=== PATIENT | female | born 1940 | race Caucasian/White ===

== ENCOUNTER → 2019-01-01 | Outpatient (CLI) | payer MEDICARE, SELFPAY ==
--- NOTE | 2019-01-01 13:34 | RAD_ITS ---
HISTORY: PPainRAD - Hip EXAM: AP pelvis and 2 views of the right hip. No comparison imaging. Surgical clips are present superimposed over the left iliac wing. Multilevel degenerative disc disease within the visualized portions of the lower lumbar spine. Facet arthropathy. Sacroiliitis. Ossific fusion across the superior aspect of the pubic symphysis. Bilateral hip arthritis with joint space narrowing. Many enthesophytes off the iliac crest and the greater trochanters. Bowel gas pattern in the pelvis is normal. RAD/HIP, UNI W/ Pelvis 2-3 Views IMPRESSION: Enthesopathy. No fracture or dislocation. at 0130 Reported and signed by: Venkata Tatum MD Electronically Signed: Venkata Tatum MD at 1:29 EDT Tel , Service support ,
[2019-01-01 16:02] LABS: AST(SGOT) 18 U/L (15-37); Alanine Aminotransfer ALT/SGPT 23 U/L (13-56); Albumin, Serum 3.3 g/dL (3.2-5.0); Alkaline Phosphatase 80 U/L (45-117); Anion Gap 10 (5-15); BUN 16 mg/dL (7-18); BUN/Creat Ratio 15.8 RATIO (10-20); Calcium,Total 8.4 mg/dL (8.5-10.1); Chloride 108 mmol/L (98-107); Creatinine, Serum 1.01 mg/dL (0.55-1.02); EST Glomerular Filtration Rate 56 mL/min (>60); Est Glom Filt Rate - Afr Amer 68 mL/min (>60); Globulin 3.2 g/dL (2.2-4.2); Glucose 111 mg/dL (74-106); Potassium 4.2 mmol/L (3.5-5.1); Protein, Total 6.5 g/dL (6.4-8.2); Sodium Level 146 mmol/L (136-145)
[2019-01-01 16:40] LABS: Absolute Lymphocyte Count 2.31 X10^3/ul (0.83-4.51); Absolute Neutrophil Count 3.9 X10^3/uL (2.0-7.7); Basophil# 0.01 X10^3/uL; Basophil% 0.1 % (0-1); Eosinophils% 1.4 % (0-5); Hematocrit 37.8 % (37-47); Hemoglobin 11.9 g/dl (12.0-15.0); Lymphocyte # 2.31 X10^3/ul (4.0); Mean Corp Hgb Conc 31.5 g/gl (32-36); Mean Corpuscular Hgb 28.8 pg (27.0-32.0); Mean Corpuscular Volume 91.5 fL (81-99); Mean Platelet Vol. 9.9 fl (6.2-12.0); Monocyte# 0.66 X10^3/uL; Monocyte% 9.4 % (0-10); Neutrophil # 3.89 X10^3/uL (2.7-7.7); Neutrophil % 55.7 % (47-70); Platelet Count 263 K/mm3 (150-450); RBC Distribution Width CV 15.3 % (11.6-14.6); Red Blood Count 4.13 M/mm3 (4.2-5.4)
[2019-01-01 17:27] LABS: POSITIVE COUNT NO; POSITIVE DIFFERENTIAL NO; POSITIVE MORPHOLOGY NO
== END | disposition home or self-care (01) ==
PROVIDERS: Family Provider Family Medicine; PCP Family Medicine; Referring Provider Internal Medicine Rheumatology; Visit Provider Internal Medicine Rheumatology
DX: M05.70 Rheumatoid arthritis with rheumatoid factor of unspecified site without organ or systems involvement (principal); Z79.899 Other long term (current) drug therapy; M17.0 Bilateral primary osteoarthritis of knee; E11.9 Type 2 diabetes mellitus without complications
CPT/HCPCS: 36415; 73502; 80053; 85025

== ENCOUNTER → 2020-01-25 12:08 | Outpatient (CLI) | payer BC, SELFPAY ==
--- NOTE | 2020-01-25 12:18 | RAD_ITS ---
STUDY: X-RAY - CERVICAL SPINE REASON FOR EXAM: Female, 79 years old. PAIN IN NECK AND LIMITED RANGE OF MOTION FOR YEARS GETTING WORSE. MOSTLY ON THE LEFT SIDE. NO KNOWN INJURY. TECHNIQUE: 7 view(s) of the cervical spine were obtained. COMPARISON: None FINDINGS: Normal anterior atlantoaxial articulation. Normal odontoid process. Normal cervical lordosis. There is multi-level endplate spondylosis. There is multi-level degenerative disc disease with multilevel disc space narrowing. There is multi-level osseous foraminal stenosis. The soft tissue structures are unremarkable. There is no demonstrated fracture of the cervical spine. RAD/Cerv Spine 4 or 5 Views IMPRESSION: Multilevel degenerative changes, no acute findings Electronically Signed: Jonathon Sarmiento MD at 12:46 EDT , Service support ,
== END ==
PROVIDERS: PCP Family Medicine; Referring Provider Anesthesiology Pain Medicine; Visit Provider Anesthesiology Pain Medicine
DX: M54.2 Cervicalgia (principal)
CPT/HCPCS: 72050

== ENCOUNTER → 2020-02-27 10:53 | Outpatient (CLI) | payer MEDICARE, SELFPAY ==
[2020-02-27 12:37] LABS: Absolute Lymphocyte Count 3.12 X10^3/uL (0.83-4.51); Basophil# 0.05 X10^3/uL; Basophil% 0.5 % (0-1); Eosinophil# 0.21 X10^3/uL; Eosinophils% 2.3 % (0-5); Hematocrit 42.9 % (37-47); Hemoglobin 13.4 g/dL (12.0-15.0); Lymphocyte # 3.12 X10^3/ul (4.0); Lymphocyte % 34.1 % (19-41); Mean Corp Hgb Conc 31.2 g/dL (32-36); Mean Corpuscular Hgb 28.4 pg (27.0-32.0); Mean Corpuscular Volume 90.9 fL (81-99); Mean Platelet Vol. 10.1 fl (6.2-12.0); Monocyte# 0.66 X10^3/uL; Monocyte% 7.2 % (0-10); NRBC Flagged by Analyzer 0 % (0-5); Neutrophil # 4.97 X10^3/uL (2.7-7.7); Neutrophil % 54.4 % (47-70); Platelet Count 239 K/mm3 (150-450); RBC Distribution Width CV 14.1 % (11.6-14.6); RBC Distribution Width SD 47.3 fl (35.1-43.9); Red Blood Count 4.72 M/mm3 (4.2-5.4); White Blood Count 9.2 K/mm3 (4.4-11.0)
[2020-02-27 12:52] LABS: AST(SGOT) 18 U/L (15-37); Alanine Aminotransfer ALT/SGPT 21 U/L (13-56); Albumin, Serum 3.4 g/dL (3.2-5.0); Alkaline Phosphatase 84 U/L (45-117); Anion Gap 4 (5-15); BUN 21 mg/dL (7-18); BUN/Creat Ratio 18.8 RATIO (10-20); Calcium,Total 8.5 mg/dL (8.5-10.1); Chloride 105 mmol/L (98-107); Creatinine, Serum 1.12 mg/dL (0.55-1.02); EST Glomerular Filtration Rate 50 mL/min (>60); Est Glom Filt Rate - Afr Amer 60 mL/min (>60); Globulin 3.3 g/dL (2.2-4.2); Glucose 177 mg/dL (74-106); Potassium 4.1 mmol/L (3.5-5.1); Protein, Total 6.7 g/dL (6.4-8.2); Sodium Level 139 mmol/L (136-145)
== END ==
PROVIDERS: PCP Family Medicine; Referring Provider Internal Medicine Rheumatology; Visit Provider Internal Medicine Rheumatology
DX: M05.70 Rheumatoid arthritis with rheumatoid factor of unspecified site without organ or systems involvement (principal); Z79.899 Other long term (current) drug therapy; M17.0 Bilateral primary osteoarthritis of knee; E11.9 Type 2 diabetes mellitus without complications; N39.46 Mixed incontinence; M47.897 Other spondylosis, lumbosacral region
CPT/HCPCS: 36415; 80053; 85025

== ENCOUNTER 2021-04-08 06:44 | Emergency (ER) | payer MEDICARE, SELFPAY ==
[2021-04-08 06:48] VITALS: TEMP 37
[2021-04-08 06:53] VITALS: BP 152/69; PULSE 68; RESP 16; TEMP 36.9; O2SAT 99; BMI 35.8
--- NOTE | 2021-04-08 07:13 | EDS_ITS ---
HPI History of Present Illness Chief Complaint: Complaint Detail of Chief Complaint: Not a complaint. Atraumatic left hip pain Informant: patient Onset/Context/Timing Onset: Yesterday Context: Gradual Onset Timing: Continuous Current Severity: Mild Maximum Severity: Mild Narrative Narrative: Patient with chronic left hip pain on tramadol. Says mostly pain in the left groin. Denies any falls or trauma. No fever. Uses tramadol at home. No prior hip surgery. Denies dysuria. Worse with movement. Prior similar symptoms: Yes Recent Illness/Hospitalization: No PFSH PFSH Medical History High cholesterol Hypertension Home Medications adalimumab [Humira Pen] 40 mg SUBCUT UD 04/08/21 [History Last Taken Unknown] atorvastatin 10 mg DAILY 04/08/21 [History Last Taken Unknown] famotidine 20 mg PO DAILY 04/08/21 [History Last Taken Unknown] gabapentin 600 mg BID 04/08/21 [History Last Taken Unknown] losartan 25 mg DAILY 04/08/21 [History Last Taken Unknown] Allergy/AdvReac Type Severity Reaction Status Date / Time ciprofloxacin [From Cipro] AdvReac Other Verified 04/08/21 07:03 diphenhydramine AdvReac Other Verified 04/08/21 07:03 [From Benadryl] Social History Smoking Status: Never smoker ROS ROS ED ROS Narrative Denies recent illness denies recent admission Review of Systems ROS Unobtainable: Denies due to encephalopathy Constitutional Constitutional ED: Denies chills or fever(s) Eyes Eyes: Denies change in vision ENT ENT ED: Denies ear pain Cardiovascular Cardiovascular: Denies chest pain Respiratory/Chest Respiratory/Chest: Denies dyspnea Gastrointestinal Gastrointestinal: Denies abdominal pain, diarrhea, nausea or vomiting Genitourinary Genitourinary ED: Denies dysuria or hematuria Musculoskeletal Musculoskeletal: Denies myalgias Integumentary Denies rash Neurologic Neurologic: Denies headache(s) Psychiatric Psychiatric: Denies depression Endocrine Endocrinology: Denies polyuria Allergic/Immunologic Allergic/Immunologic ED: Denies urticaria EXAM Physical Exam Narrative Exam Narrative: 80-year-old female no acute distress. Vital signs stable af ebrile. H EENT exam unremarkable. Neck nontender no lymphadenopathy. Lungs clear to auscultation bilaterally. Heart regular rhythm no murmur. Abdomen soft nontender normal bowel sounds no peritoneal signs. No obvious hernia seen. Patient moving all 4 extremities. Neurovascular intact. No edema. No deformity. Specifically left hip she can move it is just pain with range of motion. There is no redness or swelling. No signs of septic joint. Bilateral knee replacements. Dorsi plantar flexion intact. No shortening or deformity of the hip Const Vital Signs: 04/08/21 06:48 04/08/21 06:53 Temperature 98.6 F 98.4 F Temperature Source Temporal Temporal Pulse Rate 68 Respiratory Rate 16 Blood Pressure 152/69 H Blood Pressure Mean 96 Pulse Ox 99 Oxygen Delivery Method Room Air Positive well nourished and well developed; Negative for cachectic, contractures or unkempt General Appearance ED: well developed and NAD; Negative for unkempt, cachectic, contractures or cyanotic Nutritional Appearance: Negative for cachectic HEENT Reports moist mucous membranes Negative for trauma or tenderness Eyes PERRL and EOMs intact bilaterally Neck no lymphadenopathy, supple and no JVD General: Negative for tenderness Chest Wall inspection of chest normal and palpation of chest normal Resp normal respiratory effort and clear to auscultation bilaterally Cardio regular rate, regular rhythm, S1 normal heart sound, S2 normal heart sound and no murmurs GI normal to inspection, nondistended, normoactive bowel sounds, non-tender and non-distended Inspection: Negative for abdominal distention Auscultation: normoactive bowel sounds Palpation: soft; Negative for tender, guarding or rebound tenderness present Back/Spine no CVA tenderness General Back: Negative for CVA tenderness Extremity normal to inspection Extremity Narrative: No pain with range of motion of left hip. General Extremety ED: Negative for edema or tenderness General Extremity: Negative for edema Neuro oriented x3 and CN's II-XII intact bilaterally Sensorium / Orientation: alert; Negative for lethargic or stuporous Motor Exam: strength 5/5 throughout Psych mental status grossly normal Appearance: Negative for unkempt Skin no rashes or lesions noted and no wounds MDM MDM MDM Narrative Medical decision making narrative: Older female acute on chronic left hip pain. Does not look septic. This does appear to be musculoskeletal. Abdomen is benign. There is no hernia. Patient be given p.o. tramadol and and ambulated. She lives alone. She does have family in the area. She would prefer not that strong for pain. She does use tramadol at home. Discharge Plan Triage Chief Complaint: Complaint ED Provider: Elvis Angela Dx/Rx/DC Orders Clinical Impression: Acute pain of left hip Prescriptions: No Action gabapentin 600 mg tablet 600 mg BID RF: 0 atorvastatin 10 mg tablet 10 mg DAILY RF: 0 losartan 25 mg tablet 25 mg DAILY RF: 0 famotidine 20 mg tablet 20 mg PO DAILY RF: 0 Humira Pen 40 mg/0.8 mL pen injector kit 40 mg SUBCUT UD RF: 0 Primary Care Provider: Federica Salinas Referrals: Federica Salinas MD [Primary Care Provider] - 3-5 Days if not improving Activity Restrictions/Additional Instructions: Ice to left hip. Tramadol for pain. Follow-up with your doctor. Return emergency department if worse or unable to walk. Disposition Disposition: Home, Self Care
[2021-04-08] MEDS: traMADol 50 MG Tablet 100 MG PO (07:17)
[2021-04-08 08:18] VITALS: BP 144/65; PULSE 87; RESP 17; O2SAT 96
--- NOTE | 2021-04-08 13:49 | ED.RN ---
Pt called and asked about what to do for pain. pt given tramadol here and advised to take tramadol at home. per pt she only has enough for a couple days and she will be taking them every 3 hours. pt was advised to take them as rx. pt unable to get into dr until the Apr. pt asked what to do until then and was told her instructions say if she is unable to walk or in having more pain to come back. pt stated ok if im not
== END 2021-04-08 08:27 | disposition home or self-care (01) ==
PROVIDERS: Emergency Provider Emergency Medicine; PCP Family Medicine
DX: M25.552 Pain in left hip (principal); E78.00 Pure hypercholesterolemia, unspecified; I10 Essential (primary) hypertension; Z79.899 Other long term (current) drug therapy
CPT/HCPCS: 99284

== ENCOUNTER 2021-10-12 12:50 | Outpatient (CLI) | payer MEDICARE, SELFPAY ==
--- NOTE | 2021-10-12 12:55 | CT_ITS ---
INDICATION: EAR PAIN EXAMINATION: CT NECK WITH CONTRAST - CT Soft Tissue Neck W/ Contrast Injection TECHNIQUE: Helically acquired images were obtained of the neck following IV contrast. A radiation dose optimization technique was used for this scan. IV Contrast dosage and agent: COMPARISON: None. FINDINGS: NASOPHARYNX: Unremarkable. SUPRAHYOID NECK: Unremarkable oropharynx, oral cavity, parapharyngeal space, and retropharyngeal space. INFRAHYOID NECK: Unremarkable larynx, hypopharynx, and supraglottis. THYROID: Multiple hypodense nodules, some of which are calcified. SALIVARY GLANDS: Unremarkable. LYMPH NODES: No cervical or supraclavicular lymphadenopathy. VASCULAR STRUCTURES: Arterial atherosclerotic disease. No flow limiting stenosis. VISUALIZED PORTIONS OF THE ORBITS, PARANASAL SINUSES, MASTOID AIR CELLS AND SKULL BASE: Unremarkable. BONES: Limited assessment of fine osseous detail due to contrast enhanced protocol. No displaced fracture or subluxation. Multilevel degenerative changes of the cervical spine. No destructive osseous lesions. THORACIC INLET: 5 mm nodule in the left lung apex. The remainder of the visualized lungs are clear. CT/Soft Tissue Neck WITH Contrast IMPRESSION: 1. No findings to account for given clinical history of ear pain. 2. Multiple hypodense thyroid nodules. This is likely a multinodular goiter however some demonstrate calcifications and further assessment with nonemergent ultrasound is recommended. 3. 5 mm nodule in the left lung apex. Follow-up per FLEISCHNER criteria recommended. Electronically Signed: Rey Haines, at 15:25 EDT ,
[2021-10-12 13:16] LABS: CREATININE FINGERSTICK 1.1 mg/dL (0.55-1.02)
== END 2021-10-12 23:59 | disposition home or self-care (01) ==
LOC: CT 12:54
PROVIDERS: PCP Family Medicine; Referring Provider Otolaryngology; Visit Provider Otolaryngology
DX: H92.02 Otalgia, left ear (principal); K11.9 Disease of salivary gland, unspecified
CPT/HCPCS: 70491; Q9967

== ENCOUNTER 2022-05-14 10:47 | Emergency (ER) | payer MEDICARE, SELFPAY ==
[2022-05-14 10:48] VITALS: BP 141/84; PULSE 68; RESP 18; TEMP 36.1; O2SAT 98; BMI 37.1
--- NOTE | 2022-05-14 11:03 | CT_ITS ---
STUDY: CT CERVICAL SPINE WITHOUT CONTRAST REASON FOR EXAM: Female, 81 years old. Pain following a fall. RADIATION DOSAGE (If Supplied By Facility): CTDIvol = ( 23.71 ) mGy, DLP = ( 507.82 ) mGycm TECHNIQUE: High resolution transaxial imaging was performed without contrast material. Sagittal and coronal images were reconstructed. Individualized dose optimization techniques were used for this CT. COMPARISON: None FINDINGS: Normal craniovertebral junction. There are degenerative changes of the anterior atlantoaxial articulation. Normal odontoid process. Normal cervical lordosis. Normal vertebral bodies and posterior osseous elements. C2-3: Facet joint osteoarthritis. Mild degree of uncovertebral arthrosis. No significant stenosis seen. C3-4: Mild degree of disc space narrowing. Hypertrophy of the facet joints more prominent on the left side. Uncovertebral arthrosis. Mild degree of left neural foraminal stenosis. C4-5: Mild degree of disc space narrowing. Facet joint osteoarthritis and hypertrophy worse on the left side. A moderate degree of left neural foraminal stenosis. C5-6: Moderate degree of disc space narrowing. Spondylosis. Facet joint osteoarthritis and hypertrophy worse on the right side. Mild degree of bilateral neural foraminal stenosis. C6-7: Moderate degree of disc space narrowing and spondylosis. Uncovertebral arthrosis. Facet joint osteoarthritis. Mild bilateral neural foraminal stenosis. C7-T1: Normal endplates. Normal disc height and morphology. Normal central canal and intervertebral neuroforamina. Calcified plaque of the carotid bifurcations. Heterogeneous enlargement of both lobes of thyroid gland with focal calcification in the posterior right lobe and low density nodules in both lobes. CT/Spine Cervical without Contras IMPRESSION: Multilevel degenerative changes, as described above. Electronically Signed: Delgado Sinha MD at 12:08 EDT ,
--- NOTE | 2022-05-14 11:03 | RAD_ITS ---
STUDY: X-RAY - RIGHT SHOULDER REASON FOR EXAM: Female, 81 years old. Injury/Pain TECHNIQUE: 3 view(s) of the shoulder. COMPARISON: Comparison is made with prior study of 12/13/2016. FINDINGS: There is mild degenerative arthrosis of the glenohumeral articulation. There is hypertrophic osteoarthrosis of the acromioclavicular joint with inferior osseous spur formation. Normal acromion. Decreased distance between the acromion and head of the humerus suggestive of rotator cuff pathology. Normal humeral head and visualized proximal humerus. There is periarticular soft tissue calcification consistent with a calcific tendinitis. Normal visualized pulmonary apex. RAD/Shoulder min 2 Views IMPRESSION: Degenerative changes. No fracture is seen. Minimal calcific tendinitis. Electronically Signed: Delgado Sinha MD at 12:17 EDT ,
--- NOTE | 2022-05-14 11:03 | CT_ITS ---
STUDY: CT BRAIN WITHOUT CONTRAST REASON FOR EXAM: Female, 81 years old. Head injury. No loss of consciousness. Ecchymosis overlying the right forearm. RADIATION DOSAGE (If Supplied By Facility): CTDIvol = ( 44.99 ) mGy, DLP = ( 779.24 ) mGycm TECHNIQUE: Transaxial CT imaging of the brain was performed without administration of intravenous contrast material. Individualized dose optimization techniques were used for this CT. COMPARISON: No relevant priors. FINDINGS: Mild degree of the scalp hematoma overlying the right frontal bone. There is hyperostosis frontalis internus. There is evidence of an 8.4 mm x 6.2 mm partially calcified extradural nodule arising from the anterior right cerebral falx. This is incompletely partially calcified meningioma. There is mild cerebral atrophy with widening of the extra-axial spaces and ventricular dilatation. There are areas of decreased attenuation within the white matter tracts of the supratentorial brain, consistent with microvascular disease changes. Normal basal ganglia and thalami. Normal brainstem. Normal cerebellum. There is no intracranial hemorrhage. There are no findings of an acute ischemic infarction. Atherosclerotic calcific plaques of the vertebral arteries and cavernous portions of the internal carotid arteries bilaterally. Normal visualized paranasal sinuses. CT/Brain/Head without Contrast IMPRESSION: Findings suggestive of a 8.4 mm x 6.2 mm partially calcified nodular density arising from the anterior aspect of the right cerebral falx. This is in keeping with a partially calcified meningioma. Cerebral atrophy. Electronically Signed: Delgado Sinha MD at 12:05 EDT ,
--- NOTE | 2022-05-14 11:04 | RAD_ITS ---
STUDY: X-RAY - RIGHT KNEE REASON FOR EXAM: Female, 81 years old. Injury/Pain TECHNIQUE: 4 view(s) of the knee. COMPARISON: None. FINDINGS: Normal visualized distal femur. Normal visualized proximal tibia and fibula. Normal proximal tibiofibular articulation. The patient is status post right total knee replacement. There is good alignment. Mild degree of soft tissue swelling. RAD/Knee 4 or More Views IMPRESSION: Status post total knee replacement. There is good alignment. Mild degree of soft tissue swelling. Electronically Signed: Delgado Sinha MD at 12:16 EDT ,
--- NOTE | 2022-05-14 11:04 | ED.VIS.FALL ---
HPI <YANN Holguin - Last Filed: 05/14/22 12:51> HPI - Fall History of Present Illness Chief Complaint: Fall Narrative Narrative: 81-year-old female had a mechanical fall this morning at home. She was carrying clothing and using the cane and her other hand when the clothing got caught under the cane causing her to fall forward. She struck her head on a glass door and fell to the ground on her right side. Denies loss of consciousness. She takes no blood thinners. She called a neighbor to help her up and came in for evaluation. She does have some facial bruising but denies headache, visual changes nausea or vomiting. Denies neck or back pain. She does complain of some right shoulder and right knee pain. PFSH <YANN Holguin - Last Filed: 05/14/22 12:51> [facility] Medical History High cholesterol Hypertension Home Medications adalimumab 40 mg/0.8 mL subcutaneous pen kit (Humira Pen) 40 mg subcut UD 04/08/21 [History Last Taken Unknown] atorvastatin 10 mg tablet 10 mg DAILY 04/08/21 [History Last Taken Unknown] famotidine 20 mg tablet 20 mg PO DAILY 04/08/21 [History Last Taken Unknown] gabapentin 600 mg tablet 600 mg BID 04/08/21 [History Last Taken Unknown] losartan 25 mg tablet 25 mg DAILY 04/08/21 [History Last Taken Unknown] Allergy/AdvReac Type Severity Reaction Status Date / Time ciprofloxacin [From Cipro] AdvReac Other Verified 04/08/21 07:03 diphenhydramine AdvReac Other Verified 04/08/21 07:03 [From Benadryl] Social History Smoking Status: Never smoker ROS <YANN Holguin - Last Filed: 05/14/22 12:51> ROS ED ROS Narrative Constitutional: Negative for fever, chills, malaise. Eyes: Negative for visual change. ENT: Negative for sore throat, rhinorrhea. CVS: Negative for palpitations, chest pain, syncope. Respiratory: Negative for shortness of breath, cough. GI: Negative for abdominal pain, nausea, vomiting. : Negative for dysuria, hematuria or frequency. Neuro: Negative for headache, motor/sensory dysfunction. Skin: Negative for rash, abscess, or wound. Musc: Positive for right shoulder pain, right knee pain, trauma. Heme: Negative for easy bruising, bleeding, lymphadenopathy. EXAM <YANN Holguin - Last Filed: 05/14/22 12:51> Physical Exam Narrative Exam Narrative: CONST: Patient sitting in no acute distress. EYES: Normal inspection. PERRLA, EOMI. ENT: Right frontal scalp ecchymosis, no deformity or crepitus. No raccoon eyes or young sign, no nasal septal hematoma, no hemotympanum, no CSF otorrhea or rhinorrhea. NECK: Normal inspection. No midline spinal tenderness, no step-offs. RESP: No respiratory distress, CTAB. Chest wall nontender. CVS: Regular rate and rhythm, no murmur, no gallop. ABD: Soft and nontender, no guarding or rebound, nondistended. Pelvis: Intact, nontender. Back: Normal inspection, no midline spinal tenderness or step-offs. SKIN: Color normal, no rash, warm, dry, intact. EXTREMITIES: Tender to palpation over right shoulder, no obvious deformity but limited range of motion secondary to pain. No other bony tenderness of the upper extremities, 2+ radial pulses. Mild tenderness over right lateral knee, normal extension bilaterally, 2+ DP pulses. NEURO: Oriented x4. PSYCH: Normal affect. Const Vital Signs: 05/14/22 10:48 05/14/22 10:47 05/14/22 12:48 Temperature 97 F L Temperature Source Temporal Pulse Rate 68 71 Respiratory Rate 18 16 Respiratory Effort Normal Respiratory Depth Normal Respiratory Pattern Normal Blood Pressure 141/84 H 118/67 Blood Pressure Mean 103 Pulse Ox 98 95 Oxygen Delivery Method Room Air Room Air <Dr. Bubba Snider DO - Last Filed: 05/14/22 17:52> Physical Exam Const Vital Signs: 05/14/22 10:48 05/14/22 10:47 05/14/22 12:48 Temperature 97 F L Temperature Source Temporal Pulse Rate 68 71 Respiratory Rate 18 16 Respiratory Effort Normal Respiratory Depth Normal Respiratory Pattern Normal Blood Pressure 141/84 H 118/67 Blood Pressure Mean 103 Pulse Ox 98 95 Oxygen Delivery Method Room Air Room Air MDM <YANN Holguin - Last Filed: 05/14/22 12:51> [facility] MDM Narrative Medical decision making narrative: Patient had a mechanical fall with closed head injury without loss of consciousness. She appears well and nontoxic. Vital signs within normal limits. She has a right frontal scalp ecchymosi with no deformity and no signs of basilar skull fracture. No midline spinal tenderness throughout. Chest wall stable nontender. She does have pain over the right shoulder and right knee but is neurovascularly intact. CT scans of the head and neck were obtained and are negative. X-rays of the right shoulder and right knee are also negative for traumatic injuries. Patient states she takes tramadol from pain management and will use ice and call them if she needs further pain control. She was given head injury return precautions and discharged in stable condition. Diagnoses 1. Closed head injury without loss of consciousness 2. Scalp hematoma 3. Right shoulder pain 4. Right knee contusion Radiography Diagnostic Testing: Clinical Impression(s) from Imaging Studies Brain CT 05/14/22 11:03 IMPRESSION: Findings suggestive of a 8.4 mm x 6.2 mm partially calcified nodular density arising from the anterior aspect of the right cerebral falx. This is in keeping with a partially calcified meningioma. Cerebral atrophy. Electronically Signed: Delgado Sinha MD at 12:05 EDT , Cervical Spine CT 05/14/22 11:03 IMPRESSION: Multilevel degenerative changes, as described above. Electronically Signed: Delgado Sinha MD at 12:08 EDT , Shoulder X-Ray 05/14/22 11:03 IMPRESSION: Degenerative changes. No fracture is seen. Minimal calcific tendinitis. Electronically Signed: Delgado Sinha MD at 12:17 EDT , Knee X-Ray 05/14/22 11:04 IMPRESSION: Status post total knee replacement. There is good alignment. Mild degree of soft tissue swelling. Electronically Signed: Delgado Sinha MD at 12:16 EDT , ED attending interpretation of right shoulder shows no fracture or dislocation. ED attending interpretation of right knee shows hardware intact, no acute fracture. <Dr. Bubba Snider, DO - Last Filed: 05/14/22 17:52> [facility] Narrative Medical decision making narrative: Patient had a mechanical fall with closed head injury without loss of consciousness. She appears well and nontoxic. Vital signs within normal limits. She has a right frontal scalp ecchymosi with no deformity and no signs of basilar skull fracture. No midline spinal tenderness throughout. Chest wall stable nontender. She does have pain over the right shoulder and right knee but is neurovascularly intact. CT scans of the head and neck were obtained and are negative. X-rays of the right shoulder and right knee are also negative for traumatic injuries. Patient states she takes tramadol from pain management and will use ice and call them if she needs further pain control. She was given head injury return precautions and discharged in stable condition. Diagnoses 1. Closed head injury without loss of consciousness 2. Scalp hematoma 3. Right shoulder pain 4. Right knee contusion Attending note: Patient seen and evaluated with felled seam operator. I perform my own [id number] evaluation. I agree with the plan of work-up. Mechanical fall while carrying her close outside the bathroom. Head injury with no loss of consciousness. No anticoagulants. No headache. No nausea or vomiting. Pain right shoulder right knee. History of total knee arthroplasty bilateral in the past. Exam GCS 15 contusion right forehead. No hemotympanums. No deformities right shoulder no clavicular tenderness. Passive full range of motion. Right knee small erythema at the patella with mild tenderness. No deformities. Trauma scans head and neck obtained negative. Right shoulder x-ray 2 views and 4 views right knee reviewed by myself and read by radiology shows no acute process. Patient able to ambulate. She is on tramadol. She will follow-up with her PCP. Radiography Diagnostic Testing: Clinical Impression(s) from Imaging Studies Brain CT 05/14/22 11:03 IMPRESSION: Findings suggestive of a 8.4 mm x 6.2 mm partially calcified nodular density arising from the anterior aspect of the right cerebral falx. This is in keeping with a partially calcified meningioma. Cerebral atrophy. Electronically Signed: Delgado Sinha MD at 12:05 EDT , Cervical Spine CT 05/14/22 11:03 IMPRESSION: Multilevel degenerative changes, as described above. Electronically Signed: Delgado Sinha MD at 12:08 EDT , Shoulder X-Ray 05/14/22 11:03 IMPRESSION: Degenerative changes. No fracture is seen. Minimal calcific tendinitis. Electronically Signed: Delgado Sinha MD at 12:17 EDT , Knee X-Ray 05/14/22 11:04 IMPRESSION: Status post total knee replacement. There is good alignment. Mild degree of soft tissue swelling. Electronically Signed: Delgado Sinha MD at 12:16 EDT , Discharge Plan Triage Chief Complaint: Fall ED Midlevel Provider: Marifer Montemayor ED Provider: Bubba Snider Dx/Rx/DC Orders Clinical Impression: Closed head injury, Hematoma of frontal scalp, Acute pain of right shoulder, Acute pain of right knee Instructions: ED Scalp Contusion, ED Head Injury (Adult) Prescriptions: No Action gabapentin 600 mg tablet 600 mg BID atorvastatin 10 mg tablet 10 mg DAILY losartan 25 mg tablet 25 mg DAILY famotidine 20 mg tablet 20 mg PO DAILY Humira Pen 40 mg/0.8 mL pen injector kit 40 mg SUBCUT UD Rx Instructions: every 14 days Primary Care Provider: Víctor Huston Referrals: Víctor Huston MD [Primary Care Provider] - Activity Restrictions/Additional Instructions: Your CT scans and x-rays of your shoulder knee showed no broken bones or internal injuries. Rest, ice, take Tylenol as needed every 6 hours. If your headache becomes severe or you start vomiting or visual changes or difficulty thinking come back to the ER immediately. Disposition Disposition: Home, Self Care Discharge Date/Time: 05/14/22 12:50
[2022-05-14 12:48] VITALS: BP 118/67; PULSE 71; RESP 16; O2SAT 95
== END 2022-05-14 12:50 | disposition home or self-care (01) ==
PROVIDERS: Emergency Provider Emergency Medicine; PCP Family Medicine; Visit Provider Emergency Medicine
DX: S00.03XA Contusion of scalp, initial encounter (principal); S80.01XA Contusion of right knee, initial encounter; M25.511 Pain in right shoulder; E78.00 Pure hypercholesterolemia, unspecified; W19.XXXA Unspecified fall, initial encounter; I10 Essential (primary) hypertension
CPT/HCPCS: 70450; 72125; 73030; 73564; 99282

== ENCOUNTER 2025-03-04 10:05 | Emergency (ER) | payer MEDICARE, SELFPAY ==
[2025-03-04 10:05] VITALS: BP 103/34; PULSE 62; RESP 14; TEMP 36.6; O2SAT 98
[2025-03-04 10:11] VITALS: BMI 39.3
--- NOTE | 2025-03-04 10:19 | RAD_ITS ---
PROCEDURE: WRIST MIN 3 VIEWS 03/04/2025 REASON FOR EXAM: PAIN, FALL TECHNIQUE: WRIST MIN 3 VIEWS. Right wrist. COMPARISON: Prior study done earlier in the day. FINDINGS: Bones: Nondisplaced comminuted fracture of the distal radial metaphysis with extension to the articular surface as well as avulsion fracture of the ulnar styloid. Joints: Degenerative changes of distal radial carpal joint as well as the 1st carpometacarpal joint. Soft tissues: Diffuse soft tissue swelling. Other: RAD/Wrist min 3 Views IMPRESSION: Nondisplaced comminuted fracture of the distal radial metaphysis with extension of the articular surface in the avulsion fracture of the ulnar styloid. Soft tissue swelling. Reading Location: [facility]
--- NOTE | 2025-03-04 10:26 | EX.ED.UPPERE ---
HPI History of Present Illness Chief Complaint: Upper Extremity Injury Narrative Narrative: Chief complaint and HPI: Right hand and wrist pain. 84-year-old female with past medical history of HTN, HLD presents for evaluation of right hand and wrist pain. Patient states she was getting onto her power wheelchair when it accidentally tipped over. She landed on her right upper extremity. Did not hit her head. No LOC. Endorses pain only in the hand and wrist. Denies any numbness or tingling. Has not taken anything for pain. Review of systems: See HPI Medications: As listed on the chart Allergies: As listed on the chart PFSH: Per chart Vital signs: As listed on the chart. Reviewed. Physical exam: Gen: A&O x3, NAD Head: Normocephalic, atraumatic Eyes: No sclera icterus, conjunctiva clear, PERRL, EOMI ENT: moist mucous membranes, atraumatic Neck: Trachea midline, full range of motion, nontender CV: RRR, no murmurs, no chest wall TTP Resp: Lungs CTA BL, no w/r/c GI: Abd soft, non-distended, non-tender, no r/r/g Musc: Full ROM of all the extremities except limited in the right wrist and hand secondary to pain, mild swelling at the wrist, radial pulse +2, good capillary refill, compartments soft, full range of motion of the fingers, no spinal TTP, no kay step-offs Skin: Warm, dry, intact Neuro: Alert, oriented, grossly intact, sensation intact, GCS 15 Psych: Cooperative, appropriate mood and affect [facility] Medical History High cholesterol Hypertension Home Medications ?Medication ?Instructions ?Recorded ?Last Taken ?Type adalimumab 40 mg/0.8 mL 40 mg subcut UD 04/08/21 Unknown History subcutaneous pen kit (Humira Pen) atorvastatin 10 mg tablet 10 mg DAILY 04/08/21 Unknown History famotidine 20 mg tablet 20 mg PO DAILY 04/08/21 Unknown History gabapentin 600 mg tablet 600 mg BID 04/08/21 Unknown History losartan 25 mg tablet 25 mg DAILY 04/08/21 Unknown History Allergy/AdvReac Type Severity Reaction Status Date / Time ciprofloxacin (From Cipro) AdvReac Other Verified 03/04/25 10:06 diphenhydramine (From AdvReac Other Verified 03/04/25 10:06 Benadryl) Social History (Updated 03/04/25 @ 10:12 by Lianna Huertas) housing: house Smoking Status: Never smoker EXAM Physical Exam Const Vital Signs: 03/04/25 10:05 Temperature 98 F Temperature Source Temporal Pulse Rate 62 Respiratory Rate 14 Blood Pressure 103/34 L Blood Pressure Mean 57 Pulse Ox 98 Oxygen Delivery Method Room Air MDM MDM MDM Narrative Medical decision making narrative: 84-year-old female with past medical history of HTN, HLD presents for evaluation of right hand and wrist pain. Patient states she was getting onto her power wheelchair when it accidentally tipped over. She landed on her right upper extremity. Did not hit her head. No LOC. Endorses pain only in the hand and wrist. See physical exam findings. Differential diagnosis includes but is not limited to contusion, fracture, dislocation. Patient is not on blood thinners. Did not hit her head therefore do not think any imaging of the head or neck is needed. Will obtain x-rays of the right wrist and hand. [facility] given for pain. X-rays of the right wrist and hand were personally reviewed and interpreted by me, ED physician. Patient has a right distal radial and ulnar fracture. Radiology in agreement. Patient will warrant splint. Patient was splinted without complications. Neurovascularly intact. Sling for comfort. She is given education on splint care. Follow-up with orthopedics. Return precautions explained such as compartment syndrome. She was offered a narcotic pain prescription but declined. She would like to use her home tramadol and Tylenol. Patient stable to discharge home. Splint placement Indication: Right wrist fracture Consent: Risks, benefits, and alternatives discussed with patient and consent obtained Procedure: Immobilization was performed using arm sleeve, web roll, Ortho-Glass, Nikhil bandages in a sugar-tong splint. The extremity's neurovascular status was re-checked and was unchanged from the pre-procedure exam. The patient tolerated the procedure without complications. Impression: 1. Right distal radial and ulnar fracture, status post splint placement 2. Mechanical fall Discharge Plan Triage Chief Complaint: Upper Extremity Injury ED Provider: Wil Varela Dx/Rx/DC Orders Clinical Impression: Wrist fracture, right Instructions: ED Splint Care, Fiberglass, ED Fracture, Wrist, General Prescriptions: No Action gabapentin 600 mg tablet 600 mg BID atorvastatin 10 mg tablet 10 mg DAILY losartan 25 mg tablet 25 mg DAILY famotidine 20 mg tablet 20 mg PO DAILY Humira Pen 40 mg/0.8 mL pen injector kit 40 mg SUBCUT UD Rx Instructions: every 14 days Primary Care Provider: Víctor Huston Referrals: Víctor Huston MD [Primary Care Provider] - 3-5 Days Tavo Morelos MD [Med Staff - Active Staff] - 3-5 Days Activity Restrictions/Additional Instructions: You are nonweightbearing to the right upper extremity. Splint needs to remain on at all times. Splint cannot get wet. Follow-up with orthopedic physician. Sling for comfort. Print Language: [place] Disposition Disposition: Home, Self Care Discharge Date/Time: 03/04/25 12:47
[2025-03-04] MEDS: HYDROcodone Bitartrate/Apap 5/325 Tablet PO (10:29)
--- NOTE | 2025-03-04 10:30 | RAD_ITS ---
PROCEDURE: HAND MIN 3 VIEWS 03/04/2025 REASON FOR EXAM: PAIN, FALL Right hand. TECHNIQUE: HAND MIN 3 VIEWS COMPARISON: None FINDINGS: Bones: There is a comminuted nondisplaced fracture of the distal radial metaphysis with extension to the articular surface. Nondisplaced fracture of the ulnar styloid. Joints: Joint space narrowing of the distal radiocarpal joint. Degenerative changes of the 1st carpometacarpal joint. Soft tissues: Soft tissue swelling. Other: RAD/Hand Min 3 Views IMPRESSION: Nondisplaced comminuted fracture of the distal radial metaphysis with extension to the articular surface. Nondisplaced fracture of the ulnar styloid. Soft tissue swelling. Reading Location: [facility]
[2025-03-04 12:05] VITALS: BP 103/34; BP 130/70; PULSE 62; PULSE 73; RESP 14; RESP 18; TEMP 36.6; O2SAT 98; O2SAT 99
== END 2025-03-04 12:47 | disposition home or self-care (01) ==
PROVIDERS: Emergency Provider Surgery; PCP Family Medicine; Visit Provider Surgery
DX: S52.611A Displaced fracture of right ulna styloid process, initial encounter for closed fracture (principal); I10 Essential (primary) hypertension; E78.00 Pure hypercholesterolemia, unspecified; S52.501A Unspecified fracture of the lower end of right radius, initial encounter for closed fracture; W18.49XA Other slipping, tripping and stumbling without falling, initial encounter
CPT/HCPCS: 29126; 73110; 73130; 99283